=== PATIENT | male | born 1970 | race Caucasian/White ===

== ENCOUNTER 2023-10-22 05:49 | Day surgery (SDC) | payer BC, SELFPAY ==
[2023-10-15 07:45] VITALS: BMI 37.1
[2023-10-15 08:23] LABS: % Basophils 0.9 % (0-2); % Eosinophils 2.7 % (0-6); % Immature Granulocytes 0.3 % (0-0.5); % Lymphocytes 24.3 % (20.5-51.1); % Monocytes 5.6 % (1.7-9.3); % Neutrophils 66.2 % (42.2-75.2); Absolute Basophils 0.1 10^3/uL (0-0.2); Absolute Eosinophils 0.2 10^3/uL (0-0.7); Absolute Lymphocytes 1.9 10^3/uL (1.2-3.4); Absolute Monocytes 0.4 10^3/uL (0.1-0.6); Absolute Neutrophils 5.1 10^3/uL (1.4-6.5); Hematocrit 46.3 % (39.0-52.0); Hemoglobin 15.7 g/dL (13.0-18.0); Mean Corp Hgb Conc. 33.9 g/dL (33.0-37.0); Mean Corpuscular Hgb 29.3 pg (27.0-31.0); Mean Corpuscular Volume 86.4 fL (80.0-94.0); Mean Platelet Volume 9.7 fL (7.4-10.4); Nucleated Red Blood Cells % 0 % (-); Platelet Count 265 10^3/uL (130-400); Red Blood Cell Count 5.36 10^6/uL (4.70-6.10); Red Cell Dist. Width 13.8 % (11.5-14.5); White Blood Cell Count 7.7 10^3/uL (4.8-10.8)
[2023-10-15 08:42] LABS: Blood Urea Nitrogen 22 mg/dl (9-20); Estimated Creatinine Clearance 110 ml/min; Glucose 128 mg/dl (70-99); INR 1.82; PT 21.3 Sec (11.4-14.6); eGFR > 60.00
[2023-10-15 08:43] LABS: ALT (SGPT) 31 U/L (0-50); AST (SGOT) 33 U/L (17-59); Albumin 4.2 g/dl (3.5-5.0); Alkaline Phosphatase 74 U/L (38-126); Calcium 9.5 mg/dl (8.4-10.2); Carbon Dioxide 26 mmol/L (22-30); Chloride 102 mmol/L (98-107); Magnesium 2.4 mg/dl (1.6-2.3); Sodium 138 mmol/L (135-145); Total Bilirubin 0.7 mg/dl (0.2-1.3); Total Protein 7.3 g/dl (6.3-8.2)
[2023-10-22] VITALS (17 sets, daily range): BP systolic 128–187; BP diastolic 68–89; BMI 37.0
[2023-10-22 10:10] LABS: ACT-LR - POC 258 Seconds (116-155)
[2023-10-22 10:25] LABS: ACT-LR - POC 311 Seconds (116-155)
[2023-10-22 10:53] LABS: ACT-LR - POC 335 Seconds (116-155)
[2023-10-22 11:22] LABS: ACT-LR - POC 355 Seconds (116-155)
[2023-10-22 11:37] LABS: ACT-LR - POC 94 Seconds (116-155)
--- NOTE | 2023-10-22 12:36 | ITS.CL.ABL ---
Feed Grinder - Ablation
Ablation
Procedure Report:
Primary Plastic Shaper: Di Neri MD
Procedure Date: 10/22/2023
Patient History:
Very pleasant 52-year-old male with a past medical history significant for hypertension, dyslipidemia, chronic back and neck pain, obesity, abdominal/inguinal hernias, symptomatic paroxysmal atrial fibrillation and symptomatic paroxysmal atrial
flutter, and nonischemic cardiomyopathy.
Indication:
Symptomatic paroxysmal atrial fibrillation
Symptomatic paroxysmal atrial flutter
Recurrence/failure on antiarrhythmic medical therapy
Arrhythmia Specific History:
Prior Medical Therapies for Rate and Rhythm Control:
X Beta-wu
[ ] Calcium channel-wu
X Amiodarone
[ ] Dronederone
[ ] Sotalol
[ ] Flecainide
[ ] Dofetilide
[ ] Options limited by bradycardia
[ ] Options limited by comorbid renal disease
Prior Procedural Therapies for AF/AFL:
X Cardioversion
[ ] Pulmonary Vein Isolation
[ ] Posterior Wall Isolation
[ ] Additional lines (Specify)
[ ] Surgical Foote-MAZE or PVI (Specify)
Procedure Performed:
X AF ablation procedure (83352) -- includes LA/CS pacing, trans-septal, 3D mapping, + ICE
[ ] +IV drug (17173)
X +Other Arrhythmia (77921) - CTI RFA for documented typical atrial flutter
[ ] +Other AF Line/ablation (57757)
Risks and expected recovery has been explained in detail. Alternative options have been explored, and in a shared-decision making fashion we have decided that this was the most appropriate procedure.
Method
NPO status confirmed. Grounding pad applied. Defibrillator pads applied. Continuous surface ECG, pulse oximetry, and blood pressure were monitored. Procedure was performed under general anesthesia, with anesthesia services.
Both groins were clipped, prepped with Chloraprep, and draped in sterile fashion. Time out was called. Local anesthesia administered with bupivacaine. The right and left femoral veins were accessed for catheter placement, using ultrasound guidance,
micro-puncture needle/wire, and modified seldinger technique. 3 sheaths were placed. The following catheters were used:
X Tacticath SE (D/F Curve) ablation catheter
X Viewflex 9Fr ICE catheter
X Inquiry decapolar 6Fr diagnostic catheter
[ ] CRD Hex 6Fr
X Arctic Front Advance Cryoballoon (28mm)
X Achieve Advance mapping catheter (15mm)
[ ] [employer] AcuNav 8 Fr ICE catheter
X Other: Agilis 11.5 Fr steerable sheath
Intracardiac ultrasound (ICE) was carefully advanced into the right atrium to guide sheath placement over a J-wire, catheter placement, guide trans-septal puncture, identify potential complications, identify anatomic structures and ensure proper
contact between ablation catheter and tissue.
A multipolar catheter were advanced and attempted placement into the coronary sinus, however, there was a prominent eustachian valve and CS cannulation was not performed. Decapolar catheter was placed on the lateral aspect of the RA. A mapping /
ablation catheter was used to record and pace. Intracardiac ultrasound (ICE) was utilized for structural assessment and monitoring. Patient had typical atrial flutter noted on clinical outpatient ECG. Arrhythmia induction was attempted with atrial
extrastimuli and burst pacing but arrhythmia was not induced.
Three-dimensional electroanatomic mapping was utilized. Catheter ablation in the right atrium was performed as described below. Ablation continued until a line was complete from the tricuspid valve annulus to the IVC-RA junction. Clockwise and
counterclockwise trans-isthmus times were determined prior to ablation and afterwards, and RA activation patterns confirmed bidirectional block. Interval measurements in NSR were made. A waiting period was observed.
Next, we turned our attention to the PVI.
Heparin was given prior to trans-septal puncture. Heparin was given to achieve and maintain a target ACT of 300-400 seconds.
Trans-septal access was performed under ICE guidance. The trans-septal puncture was performed with a SafeSept wire through a Brockenbrough needle assembly. The wire was visualized as it entered the LSPV. The Brockenbrough needle assembly, SafeSept
wire and sheath dilator were removed under negative pressure. The Protrack pigtail wire was advanced through the sheath into the left atrium with position confirmed on ICE and fluoroscopy. The steerable long sheath was exchanged from the Cryo
FlexSheath steerable sheath over the Protrack wire and was advanced into the LA and positioned at the mitral annulus.
ICE and 3D mapping was performed to identify relevant cardiac structures. A careful 3D map was created to assess for regions of low-voltage and abnormal electrogram signals. Additional mapping was performed as outlined below. See synopsis for
details.
Cryoballoon ablation was performed using freeze/thaw/freeze at 2-4 minute intervals. Ablation targets included Cryoballoon temperatures of -30 degrees @ 30 seconds with goal temp typically between -40 and -50 degrees Celsius with time to effect when
measurable recorded to guide duration of application and need for repeat ablation in each vein. Esophageal temperature monitored throughout intervention. Phrenic nerve pacing performed during cryoapplication in the right pulmonary veins to monitor
for any evidence of PNI requiring application termination. See synopsis and procedure log for details.
Catheter and sheath were removed from the left atrium and post-ablation intracardiac echo evaluation was consistent with pre-ablation with no changes and no pericardial effusion and there is no left atrial thrombus or left ventricle thrombus seen.
Electrophysiology study was performed, no arrhythmia was induced. Hemostasis was obtained with Vascade and with manual pressure. Protamine was used for reversal.
Estimated Blood Loss
5-10 mL
Complications
None
Procedure Synopsis:
The patient entered the room in SR.
With regards to the atrial flutter, utilizing electroanatomic three-dimensional navigation, a 3.5 mm tip [employer] SE irrigated ablation catheter was advanced to the right atrium with the assistance of an 11.5 Fr Agilis steerable long sheath. An
electroanatomic three-dimensional map of the right atrium was constructed, with careful attention to anatomic landmarks, including the coronary sinus, IVC-RA and SVC-RA junction, tricuspid valve annulus, and region of the His bundle electrogram. An
ablation line was created from the tricuspid annulus to the IVC in the 6:00 position (DIVEHI clock). Power was titrated between 30 and 40 Zhong. The line was completed during CS pacing, and bidirectional block was achieved. The ablation line was
mapped to ensure widely spaced double potentials, and after a 20 minute waiting period, bidirectional block persisted.
With regard to the AF, three-dimensional mapping with EnSite system was performed with reconstruction of left atrium utilizing Achieve catheter. Intracardiac ultrasound and EnSite was used for guidance of ablation and placement of the Cryoballoon.
PV seal was confirmed with pressure waveform and ICE. Using the Achieve catheter, it was confirmed that pulmonary veins were active. All pulmonary veins were isolated successfully using Cryoballoon ablation using freeze/thaw/freeze cycles at
2-4-minute intervals, with good [id number]-bilnva of isolation. During the right-sided PV ablation, phrenic nerve pacing was performed to assess the phrenic nerve strength and the phrenic nerve was intact throughout the right-sided ablation. Pre- and
post-pulmonary vein recording and pacing from the Achieve catheter was utilized to ensure complete pulmonary vein isolation. LA voltage map created at procedure conclusion confirming WACA of bilateral PVs.
Fluoroscopy: 11.8 minutes; 55.93 mGy; DAP 10.1
Contrast used: 0 cc
Baseline Intervals:
Rhythm: SR
TX: 202 ms
QRS: 180 ms
QT: 515 ms
QTc: 476 ms
A-A: 1169 ms
R-R:1169 ms
AVWB: 710 ms
Post-Procedure Intervals:
TX: 175 ms
QRS: 170 ms
QT: 587 ms
QTc: 557 ms
A-A: 1110 ms
R-R: 1110 ms
AVWB: 580 ms
AVNERP: 700/400 ms
AERP: 700/300 ms
Conclusions:
- Successful ablation of the cavotricuspid isthmus with bidirectional block.
- Successful pulmonary vein isolation using cryoballoon.
Recommendations
- Bedrest with straight-leg precautions as ordered
- Admit with anticipate discharge home tomorrow after overnight observation
- Resume home medications as indicated
- Reduce amiodarone to 200 mg daily; can discontinue after 3 months
- Ok to resume anticoagulation tonight if patient and groin sites stable
- PPI daily for 30 days
- Plan for follow-up in office with Dr. Neri
Garrett Jane DO
Clinical Cardiac Supervisor [employer]
cc: Di Neri MD; NATASHA Herzog
--- NOTE | 2023-10-22 14:09 | PTCARENOTE ---
Received pt from recovery area. AOx3, no complaints of pain or discomfort. Educated on expected OOB time. B/L groin sites CDI. Oriented to room and unit, call avendaño within reach.
--- NOTE | 2023-10-22 15:29 | CM ---
Reviewed chart. Met with Mr. Bertrand to review discharge plans. He states prior to admission he resides alone in a spilt level home without any steps to enter. He states he has five steps to get to each level. He states prior to admission he was
independent with ambulation and adls. He states he does not have any DME in the home. He states he thinks hehas a prescription plan and uses [facility]. The discharge plan is to return home when medically stable.
[2023-10-22] MEDS: TYLENOL 650 MG PO (16:00)
[2023-10-22] MEDS: XARELTO 20 MG PO (17:04)
[2023-10-22] MEDS: ENTRESTO 24 MG/26 MG 1 TAB PO (20:35)
[2023-10-23 04:01] VITALS: BP 135/67
[2023-10-23 04:41] LABS: Hematocrit 40.6 % (39.0-52.0); Hemoglobin 13.9 g/dL (13.0-18.0); Mean Corp Hgb Conc. 34.2 g/dL (33.0-37.0); Mean Corpuscular Hgb 29.7 pg (27.0-31.0); Mean Corpuscular Volume 86.8 fL (80.0-94.0); Mean Platelet Volume 9.8 fL (7.4-10.4); Platelet Count 246 10^3/uL (130-400); Red Blood Cell Count 4.68 10^6/uL (4.70-6.10); Red Cell Dist. Width 14.1 % (11.5-14.5); White Blood Cell Count 15.9 10^3/uL (4.8-10.8)
[2023-10-23 05:06] LABS: Blood Urea Nitrogen 20 mg/dl (9-20); Calcium 9.6 mg/dl (8.4-10.2); Carbon Dioxide 26 mmol/L (22-30); Chloride 100 mmol/L (98-107); Estimated Creatinine Clearance > 125 ml/min; Glucose 130 mg/dl (70-99); Potassium 3.9 mmol/L (3.5-5.1); Sodium 138 mmol/L (135-145); eGFR > 60.00
[2023-10-23 07:39] VITALS: BP 141/72
--- NOTE | 2023-10-23 07:39 | W.PN.CARDCBS ---
Addendum entered and electronically signed by Addi Saleh MD 10/23/23 10:00:
patient seen and examined
Agree with CONCESSION CASHIER note and assessment
Agree with CONCESSION CASHIER plan
Exam:
Patient deferred examination this morning and as per CONCESSION CASHIER note
Telemetry sinus rhythm
He is alert or x 3
Nonfocal neurologically
JVP 6
PCP: NATASHA Beckham
Primary Software Clerk: Di Neri MD
52-year-old male with a past medical history significant for hypertension, dyslipidemia, chronic back and neck pain, obesity, abdominal/inguinal hernias, symptomatic paroxysmal atrial fibrillation and symptomatic paroxysmal atrial flutter, and
nonischemic cardiomyopathy.
Impression:
Symptomatic paroxysmal atrial fibrillation and paroxysmal atrial flutter
post PVI and CTI flutter ablation 10/22/23
Chronic non ischemic HFrEF 40-45%
HTN
HLD
chronic back pain
obesity
Plan:
post ablation still feeling 'foggy' from anesthesia
groins stable
tele SR with 1deg AVB, bifascicular block
OAC Xarelto
HF -continue metoprolol succinate 50mg bid, entresto bid
Will decrease Amiodarone 200mg daily
Add PPI protonix 40mg for 30 days
Activity restrictions reviewed
f/u Dr. Jane 2 mo
continue cardiac care with Dr. Neri
home today
Original Note:
Today's Communication / Plan
-
stable for d/c home
Impression / Plan
-
PCP: NATASHA Beckham
Primary Software Clerk: Di Neri MD
52-year-old male with a past medical history significant for hypertension, dyslipidemia, chronic back and neck pain, obesity, abdominal/inguinal hernias, symptomatic paroxysmal atrial fibrillation and symptomatic paroxysmal atrial flutter, and
nonischemic cardiomyopathy.
Impression:
Symptomatic paroxysmal atrial fibrillation and paroxysmal atrial flutter
post PVI and CTI flutter ablation 10/22/23
Chronic non ischemic HFrEF 40-45%
HTN
HLD
chronic back pain
obesity
Plan:
post ablation still feeling 'foggy' from anesthesia
groins stable
tele SR with 1deg AVB, bifascicular block
OAC Xarelto
HF -continue metoprolol succinate 50mg bid, entresto bid
Will decrease Amiodarone 200mg daily
Add PPI protonix 40mg for 30 days
Activity restrictions reviewed
f/u Dr. Jane 2 mo
continue cardiac care with Dr. Neri
home today
Progress Note - Software Clerk
Subjective
Date of Service: October 23, 2023
no cp, sob, feels 'foggy' from anesthesia
Objective
Labs:
10/23/23 04:12
10/23/23 04:12
Labs
Hgb 13.9 g/dL (13.0-18.0) 10/23/23 04:12
Hct 40.6 % (39.0-52.0) 10/23/23 04:12
Plt Count 246 10^3/uL (130-400) 10/23/23 04:12
PT 21.3 Sec (11.4-14.6) H 10/15/23 08:01
INR 1.82 10/15/23 08:01
Sodium 138 mmol/L (135-145) 10/23/23 04:12
Potassium 3.9 mmol/L (3.5-5.1) 10/23/23 04:12
BUN 20 mg/dl (9-20) 10/23/23 04:12
Creatinine 0.8 mg/dL (0.7-1.3) 10/23/23 04:12
Glucose 130 mg/dl (70-99) H 10/23/23 04:12
Vital Signs and I&O:
Vital Signs
Temp Pulse Resp BP Pulse Ox
97.9 F 60 16 135/67 99
10/23/23 04:01 10/23/23 04:30 10/23/23 04:01 10/23/23 04:01 10/23/23 04:01
Vital Signs
Temp Pulse Resp BP Pulse Ox
97.9 F 60 16 135/67 99
10/23/23 04:01 10/23/23 04:30 10/23/23 04:01 10/23/23 04:01 10/23/23 04:01
Intake & Output
10/21/23 10/22/23 10/23/23 10/24/23
06:59 06:59 06:59 06:59
Output Total 800 / 800
Balance -800 / -800
Physical Exam
Physical Exam
NAD< AOX3
S1, S2, RRR
CTAB, non labored, no wheeze
SNTND bsx4
b/l groins c/d/i no HT< soft
[2023-10-23] MEDS: PACERONE 200 MG PO (08:07)
[2023-10-23] MEDS: XARELTO 20 MG PO (08:07)
[2023-10-23] MEDS: TOPROL XL 50 MG PO (08:07)
[2023-10-23] MEDS: PROTONIX 40 MG PO (08:07)
[2023-10-23] MEDS: LIPITOR 10 MG PO (08:07)
[2023-10-23] MEDS: ENTRESTO 24 MG/26 MG 1 TAB PO (08:07)
--- NOTE | 2023-10-23 08:36 | PTCARENOTE ---
Pt received from shift stacker RN. AARogers3 in bed. NSR on residential monitor. VSS. B/L groin dressings CDI. No hematoma noted. L radial dressing CDI. Cardiology at bedside. Plan for discharge today.
--- NOTE | 2023-10-23 09:59 | W.DS.TRANS ---
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
-
Discharge Instructions:
Sleep Apnea Risk High
Discharge Diagnosis/Procedures Afib/AFlutter, post ablation
Diet Low Cholesterol
Driving Restrictions No driving for 24 hours
Instructions:
Stand-Alone Forms: DC Instructions- Cath/EP Lab
Changes to Home Medications: Yes
Discharge Medications:
DC Medications w/original date entered in [employer]
metoprolol succinate 50 mg tablet,extended release 24 hr 50 mg PO DAILY 10/10/23
rivaroxaban 20 mg tablet (Xarelto) 20 mg PO DAILY 10/10/23
sacubitril 24 mg-valsartan 26 mg tablet (Entresto) 1 tab PO BID 10/10/23
simvastatin 20 mg tablet 20 mg PO DAILY 10/10/23
amiodarone 200 mg tablet 200 mg PO DAILY #0 tabs 10/22/23
cyclobenzaprine 10 mg tablet 10 mg PO BIDPRN PRN pain, spasm 10/22/23
pantoprazole 40 mg tablet,delayed release (Protonix) 40 mg PO DAILY #30 tabs 10/22/23
tramadol 50 mg tablet 50 mg PO Q6H PRN pain 10/22/23
Home Medication Changes
decrease amiodarone to daily, new to protonix
Pending Results: No
== END 2023-10-23 11:17 | disposition home or self-care (01) ==
LOC: CATH 05:49
PROVIDERS: Nurse Practitioner Adult Health; ATTENDING PHYSICIAN Internal Medicine Cardiovascular Disease; FAMILY PHYSICIAN Nurse Practitioner Family
DX: I42.8 Other cardiomyopathies (principal); I48.0 Paroxysmal atrial fibrillation; E66.9 Obesity, unspecified; E78.5 Hyperlipidemia, unspecified; I10 Essential (primary) hypertension; Z68.34 Body mass index [BMI] 34.0-34.9, adult; Z79.01 Long term (current) use of anticoagulants
CPT/HCPCS: C1766; C1894; C1730; C2630; C1733; C1759; 36415; 75572; 76937; 80048; 80053; 83735; 85025; 85027; 85347; 85610; 86850; 86900; 86901; 93005; 93655; 93656; Q9967